=== PATIENT | male | born 1975 | race Caucasian/White ===

== ENCOUNTER 2017-11-05 08:12 | Emergency (ER) | payer BC ==
[~2017-11-05] VITALS: Ht 185.4 cm; Wt 108.2 kg
[2017-11-05 08:55] VITALS: BP 153/106
[2017-11-05] MEDS ORDERED: IBUPROFEN 600 MG TABLET PO ONE (10:00)
== END 2017-11-05 10:43 | disposition home or self-care (01) ==
LOC: EMS 08:14
DX: R51 Headache (principal); R03.0 Elevated blood-pressure reading, without diagnosis of hypertension
CPT/HCPCS: 99282